=== PATIENT | female | born 1980 | race Caucasian/White ===

== ENCOUNTER 2020-02-14 05:33 | Day surgery (SDC) | payer OTHER | END 2020-02-14 15:55 | disposition home or self-care (01) | LOC: CIR.AMB 05:33 | PROVIDERS: ATTEND Plastic Surgery | DX: E65 Localized adiposity (principal); M62.08 Separation of muscle (nontraumatic), other site; Z20.828 Contact with and (suspected) exposure to other viral communicable diseases ==